=== PATIENT | male | born 1980 | race Two or more races ===

== ENCOUNTER 2016-10-07 08:21 | Emergency (ER) | payer MEDICAID ==
[~2016-10-07] VITALS: Ht 177.8 cm; Wt 133.8 kg
[2016-10-07 08:31] VITALS: BP 167/109
== END 2016-10-07 09:36 | disposition home or self-care (01) ==
LOC: ER 08:21
DX: S93.402A Sprain of unspecified ligament of left ankle, initial encounter (principal); I10 Essential (primary) hypertension; W18.39XA Other fall on same level, initial encounter; Y93.89 Activity, other specified; Y99.8 Other external cause status; Y92.89 Other specified places as the place of occurrence of the external cause
CPT/HCPCS: 73610

== ENCOUNTER 2017-09-24 07:57 | Emergency (ER) | payer MEDICAID ==
[~2017-09-24] VITALS: Ht 177.8 cm; Wt 136.1 kg
[2017-09-24 08:22] VITALS: BP 157/103
== END 2017-09-24 09:05 | disposition left against medical advice (07) ==
LOC: ER 08:01
DX: J02.9 Acute pharyngitis, unspecified (principal); I10 Essential (primary) hypertension; R10.9 Unspecified abdominal pain; E66.01 Morbid (severe) obesity due to excess calories; Z90.49 Acquired absence of other specified parts of digestive tract; Z68.41 Body mass index [BMI] 40.0-44.9, adult

== ENCOUNTER 2020-09-19 07:45 | Emergency (ER) | payer MEDICAID, OTHER ==
[~2020-09-19] VITALS: Ht 177.8 cm; Wt 113.4 kg
[2020-09-19 07:45] VITALS: BP 136/97
== END 2020-09-19 09:04 | disposition home or self-care (01) ==
LOC: ER 07:45
DX: S62.614A Displaced fracture of proximal phalanx of right ring finger, initial encounter for closed fracture (principal); I10 Essential (primary) hypertension; W22.8XXA Striking against or struck by other objects, initial encounter; Y93.89 Activity, other specified; Y92.89 Other specified places as the place of occurrence of the external cause; Y99.8 Other external cause status
CPT/HCPCS: 29125; 73130